=== PATIENT | female | born 1990 | race African-American/Black ===

== ENCOUNTER 2022-04-25 17:56 | Emergency (ER) | payer OTHER | END 2022-04-25 21:07 | disposition home or self-care (01) | LOC: ERS 17:56 | DX: K02.9 Dental caries, unspecified (principal); K04.7 Periapical abscess without sinus | CPT/HCPCS: 99283 ==

== ENCOUNTER 2022-05-16 10:32 | Emergency (ER) | payer OTHER | END 2022-05-16 11:17 | disposition home or self-care (01) | LOC: ERS 10:32 | DX: B34.9 Viral infection, unspecified (principal) | CPT/HCPCS: 99282 ==